=== PATIENT | female | born 1965 | race Caucasian/White ===

== ENCOUNTER 2019-04-14 15:06 | Emergency (ER) | payer OTHER ==
[~2019-04-14] VITALS: Ht 172.7 cm; Wt 79.4 kg
[2019-04-14] MEDS ORDERED: XANAX0.25 MG PO (15:21)
[2019-04-14] MEDS ORDERED: CANABIS (15:21)
== END 2019-04-14 20:22 | disposition home or self-care (01) ==
LOC: ER 15:06
DX: S92.512A Displaced fracture of proximal phalanx of left lesser toe(s), initial encounter for closed fracture (principal); S80.01XA Contusion of right knee, initial encounter; W18.09XA Striking against other object with subsequent fall, initial encounter; Y93.89 Activity, other specified; Y92.89 Other specified places as the place of occurrence of the external cause; Y99.8 Other external cause status